=== PATIENT | male | born 1945 | race Caucasian/White ===

== ENCOUNTER 2016-11-15 05:15 | Inpatient (IN) | payer MEDICARE, OTHER ==
[2016-10-28 10:15] VITALS: BMI 37.0
[~2016-11-15] VITALS: Ht 177.8 cm; Wt 117.6 kg
[2016-11-15] VITALS (9 sets, daily range): BP systolic 116–153; BP diastolic 63–83; PULSE 65–83; TEMP 36.7–37.1; O2SAT 95–98; Ht 177.8 cm; Wt 117.6 kg
[~2016-11-15 05:15] MED LIST: ACET-1256 PO; ASCO10003 PO; ASPI81TA21 PO; CEPH500C2 PO; CHOL1000 PO; CLB/200 PO; DILT40TA PO; ENOX120I SQ; GABA-112 PO; LISI20TA3 PO; LOVA20TA4 PO; METF-384 PO; MICO2CRE61 TOP; MISCCAP80 PO; MULT-506 PO; OMEP20CA59 PO; WARF1TAB PO; WARF6TAB PO; [UNRECOGNIZED DRUG - OTHER] TOP
[2016-11-15 06:00] LABS: PROTHROMBIN TIME (PATIENT) 10.7 SECONDS (9.0-12.0)
[2016-11-15] MEDS ORDERED: CEFAZOLIN 2000 MG/60 ML D5W IV SCH (06:00)
[2016-11-15] MEDS ORDERED: LACTATED RINGER'S 1000ML 1,000 ML IV SCH (06:00)
[2016-11-15] MEDS ORDERED: MIDAZOLAM HCL 1 MG/ML 2ML VIAL ONE (06:41)
[2016-11-15] MEDS ORDERED: FENTANYL CITRATE INJ 50 MCG/1 ML 2 ML VIAL ONE ×4 (06:41→10:40)
[2016-11-15] MEDS ORDERED: EpHEDrine SULFATE INJ 50 MG/ML AMP IV PRN (07:00)
[2016-11-15] MEDS ORDERED: HYDROmorphone INJ 1 MG/ML SYR IV PRN (07:00)
[2016-11-15] MEDS ORDERED: FENTANYL CITRATE INJ 50 MCG/1 ML 2 ML VIAL IV PRN (07:00)
[2016-11-15] MEDS ORDERED: ATROPINE SULFATE 0.1 MG/ML 5ML SYR IV PRN (07:00)
[2016-11-15] MEDS ORDERED: ONDANSETRON INJ 2 MG/ML 2 ML VIAL IV PRN ×2 (07:00→10:45)
--- NOTE | 2016-11-15 07:29 | History & Physical Bridge Note ---
H&P Re-Evaluation Bridge Note: I have examined the patient, reviewed the History & Physical and in the interval since the performance of the History & Physical I have noted the following changes of clinical significance: No changes noted
--- NOTE | 2016-11-15 07:30 | History and Physical ---
History & Physical Date Nov 15, 2016. Chief Complaint back and leg pain History of Present Illness The patient is a 71 year old male with complaints of Past Medical/Surgical History Medical Problems: (1) Diabetes (2) HTN (hypertension) (3) Lumbar stenosis with neurogenic claudication (4) Osteoarthritis of right hip Additional History Hepatic Disease: No Endocrine Disorder: No Kidney Disease: No Hypertension: No Heart Disease: No Bleeding Tendencies: No Infectious Diseases: No Allergies Coded Allergies: Adhesives (Verified Allergy, Intermediate, BANDAIDS=RASH, 11/15/16) NO KNOWN DRUG ALLERGIES (Unverified Allergy, Unknown, NONE, 11/15/16) Home Medications Scheduled Acetaminophen (Tylenol), 500 MG PO BID Ascorbic Acid (Vitamin C), 1,000 MG PO QAM Aspirin Enteric Coated (Ecotrin Or Generic), 81 MG PO QAM Celecoxib (CeleBREX), 200 MG PO QAM Cephalexin Monohydrate (Keflex), 500 MG PO BID Cholecalciferol (Vitamin D3), 1,000 UNITS PO QAM Diltiazem Hcl (Cardizem), 90 MG PO BID Enoxaparin (Lovenox), 120 MG SQ Q12H Gabapentin (Neurontin), 500 MG PO TID Lisinopril (Prinivil), 20 MG PO QAM Lovastatin (Mevacor), 20 MG PO QPM Metformin Hcl (Glucophage), 1,000 MG PO BID Multivitamin (Multivitamin), 1 TAB PO QAM Omeprazole (Prilosec), 20 MG PO QAM Probiotic Product (Probiotic), 1 TAB PO QAM Warfarin Sodium (Coumadin), 12 MG PO 3XWEEK Warfarin Sodium (Coumadin), 11 MG PO 4XWEEK [Diabeti-Derm], 1 DOSE TOP QAM Scheduled PRN Miconazole Nitrate (Topical) (Micaderm), 1 DOSE TOP BID PRN for RN Physical Examination Skin: warm/dry, no rash Eyes: normal inspection, EOMI, sclerae normal ENT: normal ENT inspection, pharynx normal Head: normocephalic, atraumatic Neck: supple, no adenopathy, trachea midline Respiratory/Chest: lungs clear, normal breath sounds, no respiratory distress Cardiovascular: regular rate, rhythm, no edema, no murmur Abdomen / GI: normal bowel sounds, non tender Back: normal inspection Extremities: normal inspection, normal range of motion Neurologic/Psych: no motor/sensory deficits, alert, normal reflexes, oriented x 3 Diagnosis spinal stenosis Plan of Treatment decompression fusion L2-L5
[2016-11-15] MEDS ORDERED: HYDROmorphone INJ 2 MG/ML SYR/VIAL ONE ×3 (08:03→10:42)
[2016-11-15] MEDS ORDERED: PROPOFOL IV EMULSION 10 MG/ML 20 ML VIAL IV ONE (08:14)
[2016-11-15] MEDS ORDERED: ROCURONIUM BROMIDE 10 MG/ML 5 ML VIAL ONE ×2 (08:14→10:06)
[2016-11-15] MEDS ORDERED: DEXAMETHASONE SOD INJ 4 MG/ML VIAL ONE (08:14)
[2016-11-15] MEDS ORDERED: EpHEDrine SULFATE 50MG/5ML SYR ONE (08:14)
[2016-11-15] MEDS ORDERED: LIDOCAINE HCL 2% 2 ML VIAL (20MG/ML) ONE (08:14)
[2016-11-15] MEDS ORDERED: BACITRACIN 50000 UNIT VIAL IR ONE (08:39)
[2016-11-15] MEDS ORDERED: BUPIVACAINE/EPINEPHRINE 0.5% MPF 1:200,000 30 ML VIAL INJ ONE (08:39)
[2016-11-15] MEDS ORDERED: THROMBIN 20,000 UNITS (RECOMBINANT) TOP ONE (08:43)
[2016-11-15] MEDS ORDERED: GLYCOPYRROLATE INJ 0.2 MG/ML VIAL ONE (10:06)
[2016-11-15] MEDS ORDERED: NEOSTIGMINE METHYLSULFATE 1 MG/ML 10ML VIAL ONE (10:06)
[2016-11-15] MEDS ORDERED: ONDANSETRON INJ 2 MG/ML 2 ML VIAL ONE (10:06)
[2016-11-15] MEDS ORDERED: VOLUVEN IN NSS ONE (10:06)
[2016-11-15] MEDS ORDERED: FLOSEAL HEMOSTATIC MATRIX 10ML TOP ONE (10:24)
[2016-11-15] MEDS ORDERED: SODIUM CHLORIDE 0.9% 1000ML 1,000 ML IV SCH ×2 (10:31→22:15)
--- NOTE | 2016-11-15 10:31 | [facility] Post Operative Brief Note ---
Immediate Operative Summary Operative Date Nov 15, 2016. Pre-Operative Diagnosis spinal stenosis Post-Operative Diagnosis same as pre-op Procedure(s) Performed L2-L5 Revision, Decompression and Instrumented fusion,Application Interbody cage L3-L4 and L4-L5,Bone Morphogenetic Protein Application Surgeon Dr. Rober Suarez Benefits Consultant Surgeon(s) Sophia Albrecht PA-C Estimated Blood Loss 1200ML Findings stenosis Specimens NONE
[2016-11-15 10:32] LABS: HEMATOCRIT 30.9 % (42-52)
--- NOTE | 2016-11-15 10:40 | DIAGNOSTIC IMAGING REPORT ---
INTRAOPERATIVE FLUOROSCOPIC IMAGES OF THE LUMBAR SPINE CLINICAL HISTORY: L2-5 DECOMPRESSION/FUSION/INTERBODY COMPARISON STUDY: Lumbar spine MRI August 16, 2016. FLUOROSCOPY TIME: 27 seconds. FINDINGS: These images demonstrate L3-L4 and L4-L5 discectomies with interbody spacer placement. There is a posterior decompression. Bilateral pedicle screws are noted at the L2, L3, L4 and L5 levels. IMPRESSION: Findings consistent with L3-L4 and L4-L5 discectomies and L2-L5 bilateral pedicle screw fusion. Electronically signed by: Shawn Barnes M.D. 11/15/2016 10:38 AM
[2016-11-15] MEDS ORDERED: ALUMINUM/MAGNESIUM SUSP 30 ML UDC PO PRN (10:45)
[2016-11-15] MEDS ORDERED: NALOXONE HCL 0.4 MG/1 ML VIAL/CARP IV PRN ×2 (10:45)
[2016-11-15] MEDS ORDERED: FAMOTIDINE 20 MG TAB PO PRN (10:45)
[2016-11-15] MEDS ORDERED: DO NOT ADMINISTER FLU VACCINE PRN ×3 (10:45)
[2016-11-15] MEDS ORDERED: BISACODYL 10 MG SUPP PR PRN (10:45)
[2016-11-15] MEDS ORDERED: ACETAMINOPHEN 500 MG TAB PO PRN (10:45)
[2016-11-15] MEDS ORDERED: DO NOT ADMINISTER PNEUMOCOCCAL VACCINE PRN ×2 (10:45)
[2016-11-15] MEDS ORDERED: PROMETHAZINE HCL INJ 12.5 MG in SODIUM CHLORIDE 0.9% 50ML 50 ML IV PRN (10:45)
[2016-11-15] MEDS ORDERED: hydrOXYzine HCL 25 MG TAB PO PRN (10:45)
[2016-11-15] MEDS ORDERED: LORAZEPAM 0.5 MG TAB PO PRN (10:45)
[2016-11-15] MEDS ORDERED: LORAZEPAM INJ 0.5 MG in SYRINGE 0.75 ML IV PRN (10:45)
[2016-11-15] MEDS ORDERED: SOD PHOSPHATE/SOD BIPHOSPHATE ENEMA 132 ML BTL PR PRN (10:45)
[2016-11-15] MEDS ORDERED: METOCLOPRAMIDE HCL INJ 5 MG/ML 2 ML VIAL IV PRN (10:45)
[2016-11-15] MEDS ORDERED: ACETAMINOPHEN IV 100 ML IV PRN (10:45)
[2016-11-15] MEDS ORDERED: HYDROmorphone HCL 0.5MG/ML 50 ML CASSETTE ONE (10:49)
[2016-11-15] MEDS ORDERED: PHARMACY GLYCEMIC MGMT CONSULT PRN (10:57)
--- NOTE | 2016-11-15 11:15 | Anesthesiology Progress Note ---
Anesthesia Post Op Note Date & Time Nov 15, 2016 at 11:13 Vital Signs Pain Intensity: 0 Vital Signs Past 12 Hours Date Time Temp Pulse Resp B/P Pulse Ox O2 Delivery O2 Flow Rate FiO2 11/15/16 05:37 37.1 65 18 126/78 95 Room Air Notes Mental Status: alert / awake / arousable, participated in evaluation Pt Amnestic to Procedure: Yes Nausea / Vomiting: adequately controlled Pain: adequately controlled Airway Patency, RR, SpO2: stable & adequate BP & HR: stable & adequate Hydration State: stable & adequate Anesthetic Complications: no major complications apparent 1200 ml EBL but H/H taken at end of procedure was 10.6/30.9. HR 70's in PACU with BP of 133/70. Patient with mild pain but otherwise states he feels well.
[2016-11-15] MEDS: HYDROmorphone HCL 0.5MG/ML 50 ML CASSETTE IV PRN ×3 (11:56→22:53)
--- NOTE | 2016-11-15 12:13 | OPERATIVE REPORT ---
DATE OF OPERATION: 11/15/2016 PREOPERATIVE DIAGNOSES: Spinal stenosis, spondylolisthesis. POSTOPERATIVE DIAGNOSIS: Same. PROCEDURE PERFORMED: 1. Revision decompression, medial facetectomy and foraminotomy L2-3, L3-4, L4-5. 2. Posterior spinal fusion L2-3, L3-4, L4-5. 3. Placement posterior segmental instrumentation using Orthros rods and screws L2-3, L3-4, L4-5. 4. Interbody fusion L3-4, L4-5. 5. Placement of PEEK cage 13 x 26 at L3-4 and 14 x 26 at L4-5. 6. Placement of locally harvested morcellized autograft in posterior gutters. 7. Placement of Infuse collagen sponge combined with Mastergraft in the posterior gutters. Vidya bone grafting in interbody space. SURGEON: Dr. Rober Suarez. UTILITY SYSTEMS REPAIRER OPERATOR: Sophia Sosa PA-C. ANESTHESIA: General. DISPOSITION: The patient awakened and taken to PACU in stable condition. HISTORY OF PATIENT'S PROBLEMS: This is a 71-year-old male that presents with the above-mentioned diagnosis. After failing an extensive course of nonoperative care, elected to undergo the above-mentioned procedure. Risks, benefits, pros, cons, and alternatives were outlined in detail preoperatively. PROCEDURE: The patient was met preoperatively, case discussed and all questions were addressed. At that point the patient was taken back to operative suite and after undergoing successful general intubation by the department of anesthesia was placed in prone position on Alfredo table atop Remy frame. All bony prominences were well padded and the eyes were inspected to ensure there was no external pressure placed upon them. At this point, the lumbar spine was prepped and draped in normal sterile fashion. Sharp dissection with the assistance of Bovie cautery was performed down to and exposing the remaining lamina and transverse processes of 2, 3, 4, 5 bilaterally. From a caudal to cephalad fashion, a revision decompression was performed including medial facetectomies and complete foraminotomies at L3-4, 4-5 on the right. We did note significant foraminal disease. Pedicle screws were then placed in 2, 3, 4, 5 bilaterally with the assistance of fluoroscopy and appropriate size alfonso provisionally placed. Through a transforaminal approach on the right, a complete discectomy of L4-5 was performed. Endplates curetted to subcortical bleeding bone and a 14 x 26 mm PEEK cage filled with Vidya bone grafting tapped into position. I then proceeded to 3-4, and again through a transforaminal approach on the right, a complete discectomy was performed, endplates curetted to subcortical bleeding bone, and a 13 x 26 mm PEEK cage filled with Vidya bone grafting tapped into position. Appropriate size rods were then ____compressed, locked into final position bilaterally and transverse processes of 2, 3, 4, 5 burred to subcortical bleeding bone. Infuse collagen sponge combined with Mastergraft and locally harvested morcellized autograft was placed in the posterior gutters. A 7 flat STACI drain inserted. Incision was closed with 1 Vicryl in the fascia, 2-0 Vicryl subcutaneously, 4-0 Monocryl for final skin closure. Steri-Strips and sterile dressing placed. The patient was awakened and taken to PACU in stable condition. Due to the complex nature of the procedure, the entire surgery was performed with the operational assistance of EMEKA Tripathi. The senior agricultural assistant, under direct supervision, was involved in the actual performance of all aspects of the surgical procedure including hemostasis, tissue retraction and incision, instrument management, patient positioning, and wound closure. I attest to the content of the Intraoperative Record and any orders documented therein. Any exceptio ns are noted below.
[2016-11-15] MEDS ORDERED: GLUCOSE 10 TABS/TUBE PO PRN (12:15)
[2016-11-15] MEDS ORDERED: GLUCAGON FOR INJ 1 MG VIAL SQ PRN (12:15)
[2016-11-15] MEDS ORDERED: GLUCOSE 40% GEL 15 GM TUBE PO PRN (12:15)
[2016-11-15] MEDS ORDERED: DEXTROSE 50% 50 ML SYR IV PRN (12:15)
[2016-11-15] MEDS: LACTATED RINGER'S 1000ML 1,000 ML IV SCH ×2 (13:02→17:07)
--- NOTE | 2016-11-15 13:21 | Pharmacy Progress Note ---
Glycemic Control Intl Consult Date of Service Nov 15, 2016. Scope Glycemic Pharmacist consulted by Dr. Suarez on 11/15/15 for glycemic control and to write orders per [facility] inpatient glycemic control protocol Objective Weight (Kilograms): 117.600 Accuchecks BSG (last 24hrs): Test 11/15/16 05:42 11/15/16 10:56 11/15/16 12:29 Bedside Glucose 151 mg/dl (70-99) 198 mg/dl (70-99) 218 mg/dl (70-99) Recent Pertinent Medications Outpatient Anti-diabetic Regimen: * Metformin 1gm po BIDM * A1c ordered with tomorrow's AM labs Risk Factors for Insulin Resistance: * Steroids: Decadron 12mg IV preop then 6mg IV [id number] x 3 doses postop * Infection: Ancef periop * IVF: LR at 150 ml/hr * Recent Surgery: Lumbar spine surgery, POD0 * Diet: DM2 Assessment & Plan ASSESSMENT: * ADA & AACE recommend a goal blood sugar range 140-180 mg/dl for the majority of critically ill & non-critically ill patients. However, more stringent targets may be selected in individual cases. * 71 yo male admitted s/p spine surgery today with Dr. Suarez. * Fasting BSG this morning was 151mg/dl. * No recent A1c on record to evaluate control of BSGs on metformin therapy alone. Will order an A1c with tomorrow's AM labs. * Hold Metformin upon admission. Consider restarting in 1-2 days if appropriate. * Pt given high dose steroids and afternoon BSG of 218 mg/dl reflects steroid induced hyperglycemia. * Will order Novolog CF/CR based loosely upon weight-based dosing and steroid therapy. Pt likely sensitive to insulin in the absence of steroid therapy. * Will plan to discontinue Novolog CR when Metformin restarted or when steroid effect is lessened. * Will schedule Lantus at bedtime pending BSG is elevated greater than 180mg/ dl. * Add an overnight accuchek to aid in resolving overnight hyperglycemia. PLAN FOR INPATIENT GLYCEMIC CONTROL: * Add Lantus 7 units SQ HS x 1 if BSG > 180 mg/dl * Novolog ACHS + 02 * Set correction factor to 25 mg/dl/unit * Set carb ratio to 1 unit per 10 grams CHO consumed * Set goal range to Low 110 mg/dL - High 150 mg/dL for pt with tight control of BSGs as an outpatient. * Hold oral agents. * Please note that the plan above was derived based on current level of insulin resistance and hospital stress. These recommendations are appropriate for inpatient admission only. Plan of care upon discharge will need to be reassessed to avoid potential outpatient hypo/hyperglycemia. Thank you.
[2016-11-15] MEDS: INSULIN ASPART 100 UNITS/ML 3 ML PEN SC SCH ×3 (13:40→21:15)
[2016-11-15] MEDS: DEXAMETHASONE INJ 6 MG in SYRINGE 0 ML IV SCH ×2 (14:12→21:36)
[2016-11-15] MEDS: GABAPENTIN 100 MG CAP PO SCH ×2 (14:13→21:08)
[2016-11-15] MEDS: CEFAZOLIN IV 2,000 MG in DEXTROSE 5% 50ML 50 ML IV SCH ×2 (16:11→23:29)
[2016-11-15] MEDS ORDERED: LANTUS PER UNIT CHARGE SQ SCH (21:00)
[2016-11-15] MEDS ORDERED: LANTUS PER UNIT CHARGE SQ ONE (21:00)
[2016-11-15] MEDS: LOVASTATIN 20 MG TAB PO SCH (21:08)
[2016-11-15] MEDS: DOCUSATE SODIUM/SENNA 50/8.6MG TAB PO SCH (21:09)
[2016-11-15] MEDS: DILTIAZEM HCL 30 MG TAB PO SCH (21:09)
[2016-11-15] MEDS ORDERED: NURSING VERBAL MED ORDER ONE (22:15)
[2016-11-16] VITALS (7 sets, daily range): BP systolic 95–154; BP diastolic 53–74; PULSE 67–92; TEMP 36.5–36.8; O2SAT 94–96
[2016-11-16] MEDS: INSULIN ASPART 100 UNITS/ML 3 ML PEN SC SCH ×5 (02:43→21:44)
[2016-11-16] MEDS: DEXAMETHASONE INJ 6 MG in SYRINGE 0 ML IV SCH (05:51)
[2016-11-16] MEDS ORDERED: DC PCA SCH (06:00)
[2016-11-16] MEDS ORDERED: HYDROmorphone INJ 1 MG/ML SYR IV PRN (06:01)
[2016-11-16 06:11] LABS: COMPLETE YES; HEMATOCRIT 29.7 % (42-52); IG% 0.3 %; LYMPH % 6.7 %; MEAN CELL VOLUME 89.2 fL (80-100); MEAN CORPUSCULAR HEMOGLOBIN 30.6 pg (25-34); MEAN CORPUSCULAR HGB CONC 34.3 g/dl (32-36); MEAN PLATELET VOLUME 10.4 fL (7.4-10.4); MONO % 7.1 %; NEUT % 85.9 %; PLATELET COUNT 165 K/uL (130-400); RED BLOOD COUNT 3.33 M/uL (4.7-6.1); WHITE BLOOD COUNT 10.49 K/uL (4.8-10.8)
[2016-11-16 06:39] LABS: BUN/CREATININE RATIO 15.4 (10-20); CALCIUM 8.1 mg/dl (8.5-10.1); CREATININE 1.1 mg/dl (0.60-1.40); ESTIMATED AVERAGE GLUCOSE 131 mg/dl; HA1C FLAG Normal (Normal); POTASSIUM 4.2 mmol/L (3.5-5.1)
--- NOTE | 2016-11-16 08:08 | Anesthesiology Progress Note ---
Anesthesia Post Op Note Date & Time Nov 16, 2016 at 08:07 Vital Signs Vital Signs Past 12 Hours Date Time Temp Pulse Resp B/P Pulse Ox O2 Delivery O2 Flow Rate FiO2 11/16/16 07:30 Room Air 11/16/16 07:00 36.5 80 16 131/71 96 Room Air 11/16/16 02:53 36.8 77 16 154/73 94 Room Air 11/15/16 23:30 CPAP 11/15/16 22:56 36.9 77 20 124/72 95 CPAP Notes Mental Status: alert / awake / arousable, participated in evaluation Pt Amnestic to Procedure: Yes Nausea / Vomiting: adequately controlled Pain: adequately controlled Airway Patency, RR, SpO2: stable & adequate BP & HR: stable & adequate Hydration State: stable & adequate Anesthetic Complications: no major complications apparent
--- NOTE | 2016-11-16 08:35 | PROGRESS NOTE ---
DATE: 11/16/2016 DATE: 11/16/2016. SUBJECTIVE: Postop day 1. Back pain controlled. Leg pain improved. Vital signs stable. T-max 36.8. STACI drained 135 mL. Hematocrit this a.m. is 29.7. OBJECTIVE: On exam, the patient is in chair at bedside. Demonstrates good strength to testing and is comfortable. ASSESSMENT: Status post revision decompression and fusion. PLAN: At this time, initiate physical therapy, advance his bowel regimen and anticipate home .
[2016-11-16] MEDS: ASPIRIN 81 MG ECTAB PO SCH (08:40)
[2016-11-16] MEDS: GABAPENTIN 100 MG CAP PO SCH ×3 (08:41→21:41)
[2016-11-16] MEDS: PANTOprazole SOD 40 MG TAB PO SCH (08:41)
[2016-11-16] MEDS: DILTIAZEM HCL 30 MG TAB PO SCH ×2 (08:42→21:39)
[2016-11-16] MEDS: LISINOPRIL 20 MG TAB PO SCH (08:42)
[2016-11-16] MEDS ORDERED: NURSING VERBAL MED ORDER ONE (08:45)
[2016-11-16] MEDS: OXYCODONE HCL IR 5 MG TAB (IMMEDIATE RELEASE) PO PRN ×3 (08:48→18:22)
[2016-11-16] MEDS ORDERED: LANTUS PER UNIT CHARGE SQ SCH (12:30)
--- NOTE | 2016-11-16 15:18 | Pharmacy Progress Note ---
Glycemic Control: Progress Nt Date of Service Nov 16, 2016. Scope Glycemic Pharmacist consulted by Dr Suarez on 11/15/16 for glycemic control and to write orders per [facility] inpatient glycemic control protocol. Objective Accuchecks BSG (last 24hrs): Test 11/15/16 16:36 11/15/16 20:46 11/16/16 02:04 11/16/16 05:35 Bedside Glucose 220 mg/dl (70-99) 220 mg/dl (70-99) 205 mg/dl (70-99) Random Glucose 235 mg/dl (70-99) Test 11/16/16 06:59 11/16/16 11:38 Bedside Glucose 238 mg/dl (70-99) 220 mg/dl (70-99) Laboratory Data (last 24hrs) Test 11/16/16 05:35 Anion Gap 10.0 mmol/L BUN/Creatinine Ratio 15.4 Blood Urea Nitrogen 17 mg/dl Creatinine 1.10 mg/dl Hemoglobin A1c 6.2 % Potassium Level 4.2 mmol/L Sodium Level 139 mmol/L White Blood Count 10.49 K/uL Red Blood Count 3.33 M/uL Hemoglobin 10.2 g/dL Hematocrit 29.7 % Mean Corpuscular Volume 89.2 fL Mean Corpuscular Hemoglobin 30.6 pg Mean Corpuscular Hemoglobin Concent 34.3 g/dl Platelet Count 165 K/uL Mean Platelet Volume 10.4 fL Neutrophils (%) (Auto) 85.9 % Lymphocytes (%) (Auto) 6.7 % Monocytes (%) (Auto) 7.1 % Eosinophils (%) (Auto) 0.0 % Basophils (%) (Auto) 0.0 % Neutrophils # (Auto) 9.02 K/uL Lymphocytes # (Auto) 0.70 K/uL Monocytes # (Auto) 0.74 K/uL Eosinophils # (Auto) 0.00 K/uL Basophils # (Auto) 0.00 K/uL HbA1c: Test 11/16/16 05:35 Hemoglobin A1c 6.2 % (4.5-5.6) H Recent Pertinent Medications Outpatient Anti-diabetic Regimen: * Metformin 1,000mg PO BIDM The patient is currently receiving: * Basal insulin: Lantus 7 units every 24 hours given at bedtime * Correctional Insulin: Novolog Correction per scale ACHS Goal Range: Low 110 mg/dL - High 150 mg/dL Correction Factor: 25 mg/dL/unit * Prandial insulin: Per carb ratio of 1 unit per 10 grams CHO consumed * Oral Agents: On hold for admission, using SQ basal bolus orders above Risk Factors for Insulin Resistance: * Steroids * Recent Surgery * Diet Assessment & Plan ASSESSMENT: * 71yo T2DM male with adequate outpatient control of diabetes per recent A1c. * Pt is maintained on oral anti-diabetic agents as an outpatient * Oral agents are not recommended for inpatient use d/t difficultly titrating in acute situations, drug interactions, & changing PO intake/status * ADA recommends re-initiating outpatient oral agents 1-2 days prior to discharge if/when appropriate if they were held on admission. * Recommended regimen for inpatient use is SQ Basal Bolus insulin regimen with Lantus + NovoLog * Weight based SQ basal bolus insulin dosing per [facility] calculator will be used while oral antidiabetic agents on hold. Will titrate parameters based on BSG trends * Basal insulin was initiated for for persistent hyperglycemia (BSG > 180mg/dl) * Patient received dexamethasone preoperatively and will receive [3] doses post- operatively. * Steroids have their most profound effect on post-prandial hyperglycemia which is best controlled with NovoLog dosing per aggressive CF/CR. However, basal insulin with Lantus is sometimes warranted for RTC steroid dosing. * ADA & AACE recommend a goal blood sugar range 140-180 mg/dl for the majority of critically ill & non-critically ill patients. However, more stringent targets may be selected in individual cases. Will utilize more stringent goal of 110-140mg/dl based on patient age & comorbidities. Additionally, tighter glycemic control is warranted to facilitate wound/infection healing post- operatively. * BSGs ranging 198-238mg/dl over the past 24hrs with conservative insulin dosing for steroid induced hyperglycemia. Will increase doses accordingly and continue to titrate based on BSG trends and steroid dosing. PLAN FOR INPATIENT GLYCEMIC CONTROL: * Holding outpatient oral diabetes medications * Will resume metformin 1,000mg PO BIDM tomorrow * Basal insulin with LANTUS 20 units SQ x 1 dose today. Expect BSGs to improve since last dose of DXM was at 0600 this morning, therefore, will only schedule one dose. * Correctional Insulin with NOVOLOG per scale ACHS or Q6hrs while NPO. Additional checks + coverage at 0000 & 0400 tonight for RTC coverage of sustained hyperglycemia. * Goal Range: Low 110 mg/dL - High 140 mg/dL * Correction Factor: 20 mg/dL/unit * Nutritional / Prandial insulin per carb ratio of 1 unit per 7 grams CHO consumed * Please note that the plan above was derived based on current level of insulin resistance and hospital stress. These recommendations are appropriate for inpatient admission only. Plan of care upon discharge will need to be reassessed to avoid potential outpatient hypo/hyperglycemia. Thank you.
[2016-11-16] MEDS: DOCUSATE SODIUM/SENNA 50/8.6MG TAB PO SCH (21:40)
[2016-11-16] MEDS: LOVASTATIN 20 MG TAB PO SCH (21:44)
[2016-11-17] MEDS: INSULIN ASPART 100 UNITS/ML 3 ML PEN SC SCH ×5 (02:29→21:26)
[2016-11-17] MEDS: POLYETHYLENE (MIRALAX) 17 GM PACK PO SCH ×4 (05:49→23:35)
[2016-11-17 06:40] VITALS: BP 139/76; PULSE 70; TEMP 36.6; O2SAT 95
[2016-11-17] MEDS: OXYCODONE HCL IR 5 MG TAB (IMMEDIATE RELEASE) PO PRN ×3 (07:27→20:02)
[2016-11-17] MEDS: PANTOprazole SOD 40 MG TAB PO SCH (07:27)
[2016-11-17] MEDS: GABAPENTIN 100 MG CAP PO SCH ×3 (07:28→21:08)
[2016-11-17] MEDS: LISINOPRIL 20 MG TAB PO SCH (07:28)
[2016-11-17] MEDS: ASPIRIN 81 MG ECTAB PO SCH (07:29)
[2016-11-17] MEDS: METFORMIN HCL 500 MG TAB PO SCH ×2 (07:29→17:21)
[2016-11-17] MEDS: DILTIAZEM HCL 30 MG TAB PO SCH ×2 (07:29→21:09)
[2016-11-17] MEDS ORDERED: RXC5 PO (07:35)
--- NOTE | 2016-11-17 07:36 | Discharge Instructions ---
Discharge Instructions Admission Reason for Admission: Lumbar Spinal Stenosis Discharge Discharge Diagnosis / Problem: stenosis Discharge Goals Goal(s): Improve function Activity Recommendations Activity Limitations: per Instructions/Follow-up section . Instructions / Follow-Up Instructions / Follow-Up ACTIVITY RECOMMENDATIONS: SELF CARE INSTRUCTIONS AFTER THORACIC/LUMBAR FUSIONS 1. You may walk to your tolerance. It is good exercise for your legs and back. Expect some back and intermittent leg aches and pains. 2. You may perform "counter-top" level activities (make a sandwich, afsaneh with a project, etc.). 3. No bending or lifting of more than 10 pounds or back twisting of any nature (roll like a log when turning in bed). 4. You may ride in a car for 20-30 minutes at a time. No driving until after your first visit with your doctor. 5. Frequent changes of position and restricting sitting to 30 minutes at a time will help limit the amount of back spasms and stiffness you may experience. 6. You may discontinue the use of ambulatory aids (cane, crutches, etc.) once your strength and confidence allow. 7. You may log handling equipment operator the shower and let water strike your incision when you arrive home at least once daily. Do not take a tub bath, sit in a hot tub or go into a swimming pool until after your first recheck in the office. SPECIAL CARE INSTRUCTIONS: VERY IMPORTANT TO READ AND REVIEW A. Your surgical incision has been closed with a cosmetic suture under the skin that will dissolve in about 6 weeks. In 14 days, you can use a pair of clean scissors and cut the suture that is left outside of the skin at the ends of your incision. 1. The small skin tapes can be removed 7 days after surgery if they have not fallen off by that point. 2. You may keep the wound open to air as much as possible to promote healing after post-op day number 5 unless told otherwise by your doctor. 3. If you think the wound looks like it is becoming infected (redness or worsening drainage) and/or you are experiencing fever, chill or worsening back pain and muscle spasms, contact the office so that we may evaluate you as soon as possible. B. Complications are uncommon, but please contact us if you have any signs or symptoms of: 1. wound infection (fever higher than 102.5 degrees F, redness, separation of wound, drainage, or increasing pain from the incision) 2. blood clots in legs (pain, swelling, redness and warmth in legs) 3. urinary tract infection (fever higher than 102.5 degrees F, burning upon urination or increased frequency of urination) 4. nerve problems (inability to walk on your toes or heels, numbness, loss of bowel or bladder control) 5. any other symptoms that concern you C. Please call the office at if you have any concerns or questions about your operation or recovery. D. No smoking! Smoking drastically decreases the chance of a solid fusion. E. Do not take any anti-inflammatory medications (Indocin, Advil, Motrin, Aspirin, Naprosyn, etc.) as these may inhibit the chance of a solid fusion. Tylenol is okay to take for pain. MANAGING PAIN AFTER SPINAL SURGERY 1. Narcotic medication is intended for short-term use and will be provided for surgical pain. Surgical pain usually lasts for a period of 4-6 weeks. Narcotic medication includes Percocet, Vicodin, Darvocet, Tylenol #3 or Lortab. 2. Longer-term pain is more appropriately treated with non-narcotic medication such as Tylenol ES. 3. Muscle spasm is not appropriately treated with narcotics. Muscle relaxers such as Soma, Flexeril or Skelaxin can be used along with Tylenol ES. 4. Remember that we all live with some "aches and pains". This is not unusual or uncommon after an injury or as we get older. a. Back pain is expected and may include muscle spasms for 4 to 6 weeks after surgery. The pain should gradually improve. If the pain worsens for no apparent reason, please contact the office. b. Intermittent leg pain may also be experienced and should not be concerned about unless it worsens for no apparent reason. If so, please contact the office. 5. We will provide appropriate medication within the normal guidelines of their prescribed use. We will also be very cautious and aware of potential abuse and extended duration of patients' medication needs. a. Pain medications are for your comfort and to assist with sleep and rest so that the tissue can heal. They are not provided in order to return to normal activity and should not be used through the day. To do so or worsening pain at night can result from ongoing tissue damage and development of tolerance to the prescribed medicine. 6. Please allow 2-3 days to process refills. Prescriptions will not be mailed but must be picked up at the office. FOLLOW UP VISIT: Keep your scheduled follow-up appointment. Any questions, please call the office at . Current Hospital Diet Patient's current hospital diet: Diabetes Type 2 Diet Discharge Diet Recommended Diet: Regular Diet Procedures Procedures Performed: L2-L5 Revision, Decompression and Instrumented fusion,Application Interbody cage L3-L4 and L4-L5,Bone Morphogenetic Protein Application Pending Studies Studies pending at discharge: no Laboratory Results Hemoglobin A1c Test 11/16/16 05:35 Range/Units Estimated Average Glucose 131 mg/dl Hemoglobin A1c 6.2 H 4.5-5.6 % Medical Emergencies . Who to Call and When: Medical Emergencies: If at any time you feel your situation is an emergency, please call 911 immediately. . Non-Emergent Contact Non-Emergency issues call your: Primary Care Provider . "Provider Documentation" section prepared by Rober Suarez. VTE Core Measure Inpt VTE Proph given/why not?: Rosa Dejesus, SCD's
[2016-11-17 07:49] VITALS: BP 149/74; PULSE 71; TEMP 36.6; O2SAT 95
[2016-11-17 08:41] VITALS: O2SAT 95
[2016-11-17] MEDS ORDERED: KETOROLAC TROMETHAMINE 30 MG/ML VIAL IV PRN (09:30)
--- NOTE | 2016-11-17 09:46 | PROGRESS NOTE ---
DATE: 11/17/2016 Postop day #2. Back pain controlled. Leg pain markedly improved. Vital signs stable. T-max 36.6. STACI drained 85 mL today. Hematocrit stable. On exam, patient is in chair at bedside. Demonstrates good strength to testing, appears quite comfortable. ASSESSMENT: Status post revision multilevel lumbar decompression and fusion. PLAN: At this time, will continue physical therapy today, advance his bowel regimen and anticipate home tomorrow. We are looking at home health for home care and possible drain management.
--- NOTE | 2016-11-17 12:02 | Clinical Documentation Query ---
JN Sheridan : CLINICAL DOCUMENTATION QUERY Patient is a 71 year old male who on 11/15 underwent elective lumbar revision, decompression, and instrumented posterior spinal fusion. EBL for the procedure was 1,200 ml's with subsequently documented losses totaling an additional 1,020 ml's to date. Preoperative hemoglobin and hematocrit were 15.7 g/dl and 45.5%. POD #1, repeat values are 10.2 g/dl and 29.7%. Additionally, net I/O is positive for 1,430 ml's at this time. Patient is being monitored with serial hematology and I/O including drain outputs. In your clinical opinion is this patient being managed for: ( ) Acute blood loss and hemodilutional anemia ( ) Other explanation of clinical findings (Please Explain) ( ) Unable to determine (Please Define) ( ) Need to Discuss ( ) Not Agree The medical record reflects the following clinical findings, treatment, and risk factors. Clinical Indicators: >30% decline in serum hemoglobin and hematocrit Treatment: Patient is being monitored with serial hematology and I/O including drain outputs. Risk Factors: Acute perioperative blood losses Please clarify and document your clinical opinion in the progress notes and discharge summary. Terms such as "probable", "suspected", "likely", "questionable", "possible", or "still to be ruled out" are acceptable. IF IN AGREEMENT, YOU MUST DOCUMENT ABOVE DIAGNOSTIC STATEMENT IN DAILY PROGRESS NOTES AND DISCHARGE SUMMARY. This document is not part of the patient's record. Thank You, Will Desir, MAO [phone]
--- NOTE | 2016-11-17 15:13 | Pharmacy Progress Note ---
Glycemic Control: Progress Nt Date of Service Nov 17, 2016. Scope Glycemic Pharmacist consulted by Dr Suarez on 11/15/16 for glycemic control and to write orders per [facility] inpatient glycemic control protocol. Objective Accuchecks BSG (last 24hrs): Test 11/16/16 16:50 11/16/16 20:48 11/17/16 02:06 11/17/16 06:43 Bedside Glucose 208 mg/dl (70-99) 188 mg/dl (70-99) 172 mg/dl (70-99) 187 mg/dl (70-99) Test 11/17/16 11:46 Bedside Glucose 118 mg/dl (70-99) HbA1c: Test 11/16/16 05:35 Hemoglobin A1c 6.2 % (4.5-5.6) H Recent Pertinent Medications Outpatient Anti-diabetic Regimen: * Metformin 1,000mg PO BIDM The patient is currently receiving: * Basal insulin: Lantus 20 units every 24 hours * Correctional Insulin: Novolog Correction per scale ACHS Goal Range: Low 110 mg/dL - High 140 mg/dL Correction Factor: 20 mg/dL/unit * Prandial insulin: Per carb ratio of 1 unit per 7 grams CHO consumed * Oral Agents: On hold for admission, using SQ basal bolus orders above Risk Factors for Insulin Resistance: * Steroids * Recent Surgery * Diet Assessment & Plan ASSESSMENT: * 71yo T2DM male with adequate outpatient control of diabetes per recent A1c. * Pt is maintained on oral anti-diabetic agents as an outpatient which were held post-operatively. Pt initiated on weight based SQ basal bolus insulin regimen while metformin on hold. * Patient received dexamethasone sylwia-operatively and will received 3 doses post -operatively which compounded hyperglycemia. * Biological half life of dxm can range from 24-48hrs, therefore, anticipate hyperglycemia to start resolving. * ADA & AACE recommend a goal blood sugar range 140-180 mg/dl for the majority of critically ill & non-critically ill patients. However, more stringent targets may be selected in individual cases. Will utilize more stringent goal of 110-140mg/dl based on patient age & comorbidities. Additionally, tighter glycemic control is warranted to facilitate wound/infection healing post- operatively. * BSGs ranging 118-208mg/dl over the past 24hrs with SQ basal bolus insulin dosing for steroid induced hyperglycemia. Hyperglycemia seems to be resolving with dxm effects wearing off. PO intake adequate and renal function stable. Will resume outpatient metformin in anticipation of d/c tomorrow. PLAN FOR INPATIENT GLYCEMIC CONTROL: * Resume metformin 1,000mg PO BIDM * Correctional Insulin with NOVOLOG per scale ACHS or Q6hrs while NPO. * Goal Range: Low 110 mg/dL - High 140 mg/dL * Correction Factor: 20 mg/dL/unit * Discontinue Nutritional / Prandial insulin per carb ratio since metformin restarting * Please note that the plan above was derived based on current level of insulin resistance and hospital stress. These recommendations are appropriate for inpatient admission only. Plan of care upon discharge will need to be reassessed to avoid potential outpatient hypo/hyperglycemia. Thank you.
[2016-11-17 16:02] VITALS: BP 148/72; PULSE 66; TEMP 36.8; O2SAT 94
[2016-11-17] MEDS: MAGNESIUM HYDROXIDE SUSP 30 ML UDC PO PRN (17:21)
[2016-11-17] MEDS: DOCUSATE SODIUM/SENNA 50/8.6MG TAB PO SCH (21:08)
[2016-11-17] MEDS: CEPHALEXIN MONOHYDRATE 500 MG CAP PO SCH (21:09)
[2016-11-17] MEDS: LOVASTATIN 20 MG TAB PO SCH (21:09)
[2016-11-17 23:56] VITALS: BP 106/57; PULSE 68; TEMP 36.9; O2SAT 96
[2016-11-18] MEDS: POLYETHYLENE (MIRALAX) 17 GM PACK PO SCH (05:41)
[2016-11-18 06:29] VITALS: BP 115/67; PULSE 68; TEMP 36.7; O2SAT 98
[2016-11-18] MEDS: OXYCODONE HCL IR 5 MG TAB (IMMEDIATE RELEASE) PO PRN ×2 (07:29→13:15)
[2016-11-18] MEDS: DILTIAZEM HCL 30 MG TAB PO SCH (07:30)
[2016-11-18] MEDS: METFORMIN HCL 500 MG TAB PO SCH (07:30)
[2016-11-18] MEDS: PANTOprazole SOD 40 MG TAB PO SCH (07:30)
[2016-11-18] MEDS: LISINOPRIL 20 MG TAB PO SCH (07:30)
[2016-11-18] MEDS: GABAPENTIN 100 MG CAP PO SCH (07:31)
[2016-11-18] MEDS: MAGNESIUM HYDROXIDE SUSP 30 ML UDC PO PRN (07:31)
[2016-11-18] MEDS: CEPHALEXIN MONOHYDRATE 500 MG CAP PO SCH (07:31)
[2016-11-18] MEDS: ASPIRIN 81 MG ECTAB PO SCH (07:31)
[2016-11-18] MEDS: INSULIN ASPART 100 UNITS/ML 3 ML PEN SC SCH ×2 (07:39→12:00)
--- NOTE | 2016-11-18 08:36 | DISCHARGE SUMMARY ---
PRINCIPAL DIAGNOSIS: Spinal stenosis. HOSPITAL COURSE FOLLOWS: On November 15, the patient underwent revision lumbar decompression and fusion, tolerated this well and taken to the orthopedic floor postoperatively. Postop day #1, he was up and ambulatory, progressed to postop day 2. Postop day #3, STACI drain decreased appropriately, pain controlled. Subsequently discharged home with home health. Discharge orders and instructions found on the chart for further review.
[2016-11-18] MEDS ORDERED: NURSING VERBAL MED ORDER ONE (11:15)
[2016-11-18 12:14] VITALS: BP 115/67; PULSE 68; TEMP 36.7; O2SAT 98
== END 2016-11-18 13:15 | disposition home health service (06) | DRG 460 ==
LOC: ENRESERVDT → ENRESERVTM → C.ACU 05:15 → C.3E 07:30
PROVIDERS: ADMIT Orthopaedic Surgery Orthopaedic Surgery of the Spine; ATTEND Orthopaedic Surgery Orthopaedic Surgery of the Spine
PROC: 0SG1071 Fusion of 2 or more Lumbar Vertebral Joints with Autologous Tissue Substitute, Posterior Approach, Posterior Column, Open Approach (ICD-10-PCS; principal; 2016-11-15 07:30)
PROC: 0SG10AJ Fusion of 2 or more Lumbar Vertebral Joints with Interbody Fusion Device, Posterior Approach, Anterior Column, Open Approach (ICD-10-PCS; principal; 2016-11-15 07:30)
PROC: 0ST20ZZ Resection of Lumbar Vertebral Disc, Open Approach (ICD-10-PCS; principal; 2016-11-15 07:30)
PROC: 3E0U0GB Introduction of Recombinant Bone Morphogenetic Protein into Joints, Open Approach (ICD-10-PCS; principal; 2016-11-15 07:30)
DX: M48.06 Spinal stenosis, lumbar region (principal); M43.16 Spondylolisthesis, lumbar region; M54.16 Radiculopathy, lumbar region; I10 Essential (primary) hypertension; E78.5 Hyperlipidemia, unspecified; K21.9 Gastro-esophageal reflux disease without esophagitis; M19.90 Unspecified osteoarthritis, unspecified site; E11.9 Type 2 diabetes mellitus without complications; G47.33 Obstructive sleep apnea (adult) (pediatric); E66.9 Obesity, unspecified; Z68.37 Body mass index [BMI] 37.0-37.9, adult; Z96.652 Presence of left artificial knee joint; Z86.718 Personal history of other venous thrombosis and embolism; Z79.01 Long term (current) use of anticoagulants; Z79.1 Long term (current) use of non-steroidal anti-inflammatories (NSAID); Z79.82 Long term (current) use of aspirin; Z79.84 Long term (current) use of oral hypoglycemic drugs; Z79.899 Other long term (current) drug therapy

== ENCOUNTER → 2018-06-01 | Outpatient (CLI) | payer BC, MEDICARE, OTHER ==
[~2018-06-01] MED LIST changes: +ASPI-319 PO; -ASPI81TA21 PO; -CLB/200 PO; -ENOX120I SQ; +RXC5 PO
== END | disposition home or self-care (01) ==
LOC: C.RDSM 07:41
PROVIDERS: ATTEND Physical Medicine & Rehabilitation
DX: M54.5 Low back pain (principal); Z98.1 Arthrodesis status; Z88.8 Allergy status to other drugs, medicaments and biological substances

== ENCOUNTER → 2018-06-05 | Outpatient (CLI) | payer MEDICARE ==
[~2018-06-05] MED LIST changes: +GADAVIST IV PRN
--- NOTE | 2018-06-05 14:00 | DIAGNOSTIC IMAGING REPORT ---
MRI OF THE LUMBAR SPINE WITH AND WITHOUT CONTRAST CLINICAL HISTORY: Lumbar radiculopathy. Severe gait disturbance. Back pain. COMPARISON STUDY: Lumbar spine MRI August 16, 2016 and lumbar spine radiographs June 01, 2018. TECHNIQUE: Utilizing a 1.5 Diane magnet and dedicated coil, multiplanar, multiecho imaging of the lumbar spine was performed before and after uneventful IV administration of 11.5 mL of Gadavist. FINDINGS: For purposes of numbering on this exam, the L5-S1 disc space is assigned to axial image 23 of 26. There is a 5 mm anterolisthesis of L4 and L5. Vertebral body heights are maintained. The patient is status post L3-L4 and L4-L5 discectomies with interbody spacer placement. There is a posterior decompression with bilateral pedicle screws at the L2, L3, L4 and L5 levels. There is no intracanalicular mass, fluid collection or abnormal enhancement. The conus terminates at the lower L1 level. Note is made of mild edema along the left superior endplate of L2. L1-2: There is disc space narrowing with disc bulge, ligamentous hypertrophy and facet arthrosis that result in moderate narrowing of the central canal, lateral recesses and neural foramen. This has developed since MRI of August 16, 2016. L2-3: There is marked disc space narrowing. Central canal and neural foramen are patent. L3-4: No central canal stenosis. Note is made of mild to moderate bilateral neural foraminal stenosis. L4-5: There is no central canal stenosis. There is mild to moderate multilevel neural foraminal stenosis. L5-S1: Central canal and neural foramen are patent. IMPRESSION: 1. Status post L3-L4 and L4-L5 discectomies and posterior decompression with L2-L5 bilateral pedicle screw fusion. 2. Moderate central canal, lateral recess and neural foraminal stenosis at L1-L2 which has developed since MRI of August 16, 2016. Otherwise, patent central canal. 3. Moderate multilevel neural foraminal stenosis, as detailed above. 4. Mild increased T2 signal along the superior endplate of L2 which is likely degenerative. A tiny Schmorl's node or nondisplaced compression fracture could appear similar. Electronically signed by: Shawn Barnes M.D. 06/05/2018 1:59 PM Dictated Date/Time: 06/05/2018 1:24 PM
== END | disposition home or self-care (01) ==
LOC: C.MRIBC 12:04
PROVIDERS: ATTEND Physical Medicine & Rehabilitation
DX: M54.16 Radiculopathy, lumbar region (principal)